=== PATIENT | female | born 1980 | race Caucasian/White ===

== ENCOUNTER 2017-03-16 09:47 | Emergency (ER) | payer BC, OTHER ==
--- NOTE | ~2017-03-16 | EKG ---
PATIENT: ZULY VALENCIA UNIT #: [id number] Ventricular Rate: 73 BPM Atrial Rate: 73 BPM P-R Interval: 178 ms QRS Duration: 70 ms Q-T Interval: 414 ms QTC Calculation(Bezet): 456 ms P [place]: 61 degrees Calculated R [place]: 19 degrees Calculated T [place]: 13 degrees Diagnosis Line: Normal sinus rhythm Diagnosis Line: Nonspecific T wave abnormality Diagnosis Line: Otherwise normal ECG Diagnosis Line: When compared with ECG of 25-JUN-2013 12:55, Diagnosis Line: No significant change was found Diagnosis Line: Confirmed by EULALIA FUENTES MD ([id number]) on 03/16/2017 Diagnosis Line: 5:26:22 PM INTERPRETING MD: GINA HANSEN
[~2017-03-16 09:47] MED LIST: AMITRIPTYLINE H25 MG PO; FLEXERIL10 MG PO; NO MEDICATIONS; ORUDIS75 M1 PO; PEN-VEE K PO; VICODIN 5/1 TAB 5/50 PO
[2017-03-16 11:38] LABS: URINE SOURCE CLEAN CATCH
[2017-03-16 11:39] LABS: POC - CKMB <1.0 ng/mL (0.0-7.9); POC - TROPONIN <0.05 ng/mL (<=0.05)
[2017-03-16 11:48] LABS: BASOPHIL# 0.1 X10e3 (0-0.3); BASOPHIL% 0.5 % (0-2.5); EOSINOPHIL# 0.1 X10e3 (0-0.7); EOSINOPHIL% 1.1 % (0.0-7.0); HEMATOCRIT 44.5 % (35.0-45.0); HEMOGLOBIN 14.8 gm/dL (12.0-16.0); LYMPHOCYTE# 2.6 X10e3 (1.0-3.5); LYMPHOCYTE% 25.2 % (17.0-45.0); MEAN CELL VOLUME 94.3 FL (83-96); MEAN CORPUSCULAR HEMOGLOBIN 31.4 PG (28-34); MEAN CORPUSCULAR HGB CONC 33.3 g/dL (30-36); MEAN PLATELET VOLUME 8.7 FL (6.5-11.5); MONOCYTE# 0.6 X10e3 (0-1.0); NEUTROPHIL# 6.9 X10e3 (1.5-7.1); NEUTROPHIL% 67.2 % (40-75); PLATELET COUNT 308 X10e3 (140-420); RED BLOOD COUNT 4.72 X10e (3.90-5.30); RED CELL DISTRIBUTION WIDTH 13.2 % (11.0-15.5); WHITE BLOOD COUNT 10.3 X10e3 (4.0-10.5)
[2017-03-16 11:49] LABS: URINE APPEARANCE CLEAR; URINE BILIRUBIN NEG (NEG); URINE BLOOD NEG (NEG); URINE COLOR YELLOW; URINE GLUCOSE NEG (NEG); URINE KETONE NEG (NEG); URINE LEUKOCYTE ESTERASE NEG (NEG); URINE NITRATE NEG (NEG); URINE PH 5.5 (5-8); URINE PROTEIN NEG (NEG); URINE SPECIFIC GRAVITY 1.009 (1.003-1.035); URINE UROBILINOGEN 0.2 MG/DL (NEG)
[2017-03-16 11:50] LABS: DIFF IND NO
[2017-03-16 11:51] LABS: CULTURE INDICATED? NO
[2017-03-16 12:16] LABS: ALBUMIN SERUM 4.8 g/dL (3.5-5.0); BILIRUBIN,TOTAL 0.7 mg/dL (0.2-2.0); BUN/CREATININE RATIO 18.33; CALCIUM SERUM 9.4 mg/dL (8.4-10.2); CREATININE SERUM 0.6 mg/dL (0.6-1.4); GLOM FILT RATE Estimated 116.4 mL/min (>60); POTASSIUM 3.9 mmol/L (3.5-5.1); PROTEIN TOTAL SERUM 7.7 g/dL (6.0-8.3)
== END 2017-03-16 13:20 | disposition home or self-care (01) ==
LOC: CED 09:47
PROVIDERS: Emergency Medicine
DX: R42 Dizziness and giddiness (principal); F17.200 Nicotine dependence, unspecified, uncomplicated; K21.9 Gastro-esophageal reflux disease without esophagitis; Z90.710 Acquired absence of both cervix and uterus; Z98.51 Tubal ligation status; Z88.8 Allergy status to other drugs, medicaments and biological substances
CPT/HCPCS: 36415; 80053; 81003; 82553; 84484; 85025; 93005; 96360; 99284

== ENCOUNTER 2017-06-20 12:46 | Emergency (ER) | payer BC, OTHER ==
[2017-06-20] MEDS ORDERED: PANTOPRAZOLE SO40 MG PO (12:48)
[2017-06-20] MEDS ORDERED: PHENERGAN PO (12:48)
== END 2017-06-20 13:35 | disposition home or self-care (01) ==
LOC: SED 12:46
DX: S89.92XA Unspecified injury of left lower leg, initial encounter (principal); F17.210 Nicotine dependence, cigarettes, uncomplicated; W22.8XXA Striking against or struck by other objects, initial encounter
CPT/HCPCS: 99283

== ENCOUNTER 2017-07-10 20:27 | Emergency (ER) | payer BC, OTHER ==
[~2017-07-10] VITALS: Ht 162.6 cm; Wt 81.6 kg
--- NOTE | ~2017-07-10 | CR2 ---
[facility] A Service of [facility] RADIOLOGY TEXT RESULTS PATIENT: ZULY VALENCIA LOCATION: SED : 78 UNIT #: [id number] AGE: [address]: Roxana Santiago MD SEX: F ORDER DR: [id number] [place] [id number] E MR#: [id number] Acc #: [id number] NAME: ZULY VALENCIA : 1980 SEX: F STUDY DATE/TIME: UNIT: SED ROOM: STUDY DESCRIPTION: CR Abdomen Acute Series Attending Physician: Roxana Santiago M.D. Ordering Physician: Roxana Santiago M.D. Primary Care Physician: Chata Brown A.P.R.N. MEDICAL IMAGING REPORT This report is preliminary unless electronic signature is present. EXAM Acute abdomen series 07/10 21:52 INDICATIONS Generalized abdominal pain and diarrhea that started last Monday. FINDINGS Single frontal view of the chest taken at the time of the abdominal examination is within normal limits. AP, supine, and upright examination of the abdomen shows a normal gas and fecal pattern distribution throughout large and small bowel without distended loops in either area. There is no indication of extraluminal air, unusual visceromegaly, or soft tissue density mass. The renal definitions are fairly well demarcated and normal in shape and size. No abnormal intra-abdominal calcifications are present. IMPRESSION Normal acute abdomen series. Dictated by... Jason Fletcher Jr., M.D. THIS IS AN ELECTRONICALLY VERIFIED REPORT Jason Fletcher Jr., M.D. at 07/11/2017 9:13 PM RLK/to TD: 07/11/2017 13:51 JOB #: [id number] MEDICAL IMAGING REPORT [facility] A Service [facility] RADIOLOGY TEXT RESULTS PATIENT: ZULY VALENCIA LOCATION: SED : 78 UNIT #: [id number] AGE: [address]: Roxana Santiago MD SEX: F ORDER DR: Page 1 of 1
[~2017-07-10 20:27] MED LIST changes: +PANTOPRAZOLE SO40 MG PO; +PHENERGAN PO
[2017-07-10 21:48] LABS: URINE SOURCE CLEAN CATCH
[2017-07-10 21:50] LABS: URINE APPEARANCE CLEAR; URINE BILIRUBIN NEG (NEG); URINE BLOOD NEG (NEG); URINE COLOR YELLOW; URINE GLUCOSE NEG (NORM); URINE KETONE NEG (NEG); URINE LEUKOCYTE ESTERASE NEG (NEG); URINE NITRATE NEG (NEG); URINE PROTEIN NEG (NEG); URINE SPECIFIC GRAVITY 1.015 (1.003-1.035); URINE UROBILINOGEN 0.2 MG/DL (NORM)
[2017-07-10 21:52] LABS: MICRO INDICATED? NO
[2017-07-10 21:58] LABS: BASOPHIL# 0.1 X10e3 (0-0.3); BASOPHIL% 0.8 % (0-2.5); EOSINOPHIL# 0.2 X10e3 (0-0.7); EOSINOPHIL% 1.5 % (0.0-7.0); HEMATOCRIT 43.2 % (35.0-45.0); HEMOGLOBIN 14.9 gm/dL (12.0-16.0); LYMPHOCYTE# 3.8 X10e3 (1.0-3.5); LYMPHOCYTE% 31.8 % (17.0-45.0); MEAN CELL VOLUME 93.3 FL (83-96); MEAN CORPUSCULAR HEMOGLOBIN 32.1 PG (28-34); MEAN CORPUSCULAR HGB CONC 34.4 g/dL (30-36); MEAN PLATELET VOLUME 8.6 FL (6.5-11.5); MONOCYTE# 0.8 X10e3 (0-1.0); MONOCYTE% 6.5 % (3.0-12.0); NEUTROPHIL# 7.1 X10e3 (1.5-7.1); NEUTROPHIL% 59.4 % (40-75); PLATELET COUNT 273 X10e3 (140-420); RED BLOOD COUNT 4.64 X10e (3.90-5.30); RED CELL DISTRIBUTION WIDTH 13.2 % (11.0-15.5); WHITE BLOOD COUNT 11.9 X10e3 (4.0-10.5)
[2017-07-10 22:00] LABS: DIFF IND NO
[2017-07-10 22:15] LABS: ALBUMIN SERUM 4.8 g/dL (3.5-5.0); ALKALINE PHOSPHATASE 78 U/L (32-92); ALT (SGPT) 74 U/L (10-40); AMYLASE 18 U/L (0-46); AST (SGOT) 26 U/L (10-42); BILIRUBIN, DIRECT <0.1 mg/dL (0.0-0.2); BILIRUBIN,INDIRECT 0.4 mg/dL (0.0-0.9); BILIRUBIN,TOTAL 0.5 mg/dL (0.2-2.0); BLOOD UREA NITROGEN 12 mg/dL (9-23); CALCIUM SERUM 8.9 mg/dL (8.4-10.2); CARBON DIOXIDE 23 mmol/L (22-31); CHLORIDE 107 mmol/L (100-111); CREATININE SERUM 0.6 mg/dL (0.6-1.4); GLOM FILT RATE Estimated 116.4 mL/min (>60); GLUCOSE FASTING 96 mg/dL (70-110); LIPASE 24 U/L (22-51); POTASSIUM 3.5 mmol/L (3.5-5.1); PROTEIN TOTAL SERUM 7.9 g/dL (6.0-8.3); SODIUM 135 mmol/L (135-145)
== END 2017-07-10 22:46 | disposition home or self-care (01) ==
LOC: SED 20:27
PROVIDERS: Student in an Organized Health Care Education/Training Program
DX: R19.7 Diarrhea, unspecified (principal); Z98.51 Tubal ligation status; Z90.710 Acquired absence of both cervix and uterus; F17.200 Nicotine dependence, unspecified, uncomplicated; Z79.899 Other long term (current) drug therapy; Z88.8 Allergy status to other drugs, medicaments and biological substances
CPT/HCPCS: 36415; 74022; 80048; 80076; 81003; 82150; 83690; 85025; 99284